=== PATIENT | female | born 1990 | race Caucasian/White ===

== ENCOUNTER 2018-08-10 11:41 | Outpatient (CLI) | payer OTHER ==
[~2018-08-10] VITALS: Ht 157.5 cm; Wt 74.8 kg
[2018-08-10 11:58] VITALS: BP 136/82; PULSE 108; Ht 157.5 cm; Wt 74.8 kg
--- NOTE | 2018-08-10 14:45 | TRIAGE ---
OB Triage Datetime Report Generated by CPN: 08/10/2018 14:45 Datetime: 08/10/2018 12:24 Labor Evaluation Frequency: x1 Monitor Mode: External Duration (sec)2399: 60 Quality: Mild Pattern: Normal: <= 5 Contractions in 10 Minutes Resting Tone [place]: Relaxed Heart Rate FHR Baseline Rate: 145 Monitor Mode: External US Variability: Moderate 6-25 bpm Accelerations: 15X15 Decelerations: None Category: Category I Comments: reactive nst Pain Assessment Pain Presence: None/Denies Pain Type: N/A Datetime: 08/10/2018 12:04 Assessment Type: Triage Maternal Assessment Level of Consciousness: Fully Conscious DTR's/Clonus: DTRs 2+; No Clonus Headache: Denies Blurred Vision: No Respiratory Effort: Unlabored; Regular Rhythm; Equal Expansion Breath Sounds, Left: Clear and Equal Breath Sounds, Right: Clear and Equal Nausea/Vomiting: Denies RUQ Epigastric Pain: Denies Lower Extremities Edema: None Degree: None Upper Extremities Edema: None Facial Edema: None Fall Risk Assessment History of Falling: (0) No Secondary Diagnosis: (0) No Ambulatory Aid: (0) Bedrest/Nurse Assist IV Therapy: (0) No Gait: (0) Normal/Bedrest/Immobile Mental Status: (0) Oriented to Own Ability Fall Score: 0 Fall Risk Score Definition: No Risk: No action required Datetime: 08/02/2018 11:45 Vaginal Exam Membrane Status: Intact Datetime: 08/02/2018 10:52 Time of Arrival: 08/10/2018 11:28 EGA: 36.0 Arrived By: Ambulatory Arrived From: Home Chief Complaint: pt. to ob triage with prescription for 24hr urine for total protein, creatinine cl earance, pih labs, nst, bpp, pt. c/o sometime feel headache, see dark spots. deny epigastric pain Movement: Present Contractions: Denies/Absent Rupture of Membranes: Denies Vaginal Discharge: Denies Recent Sexual Intercouse: Denies Abdominal Trauma: Not Applicable Patient Complaints: Headache; Visual Disturbance; Other Additional Patient Complaints: iugr Time Provider Notified: 08/10/2018 14:01 Provider Notified: Initial Plan: nst, bpp, pih labs, 24hr urine for total protein, creatinine clearance
--- NOTE | 2018-08-10 19:43 | PN ---
Triage Information Date/Time 08/10/2018 Reason for visit: Rule out PIH, headache and blurred vision Weeks of Gestation 36 weeks /Para 2 para 1 Diabetes: none Hypertention: none Additional information 27-year-old with IUP at 36 weeks presented with for rule out PIH due to headache and scotoma. Her blood pressures during office visit was in the range of 130s over 80s. Patient denies any leaking of fluid, vaginal bleeding or decreased movement. Denies any prior history of PIH and prior . Antepartum course complicated by IUGR currently being followed by NST BPP Objective Vital Signs Date Temp Pulse Resp B/P (MAP) Pulse Ox O2 O2 Flow FiO2 Time Delivery Rate 08/10/18 98.1 108 136/82 11:58 (100) Heart Rate: 130's Contractions: None Exam Appearance: Alert and oriented x4 does not appear to be in any acute distress Abdomen: Soft, gravid, fundal height consider gestational age NST: Category 1 LAZARUS: 10 BPP: 12/14 Paraspinals normal Results/Medications Result Diagram: 08/10/18 1209 08/10/18 1209 Results 24 hrs Laboratory Tests Test 08/10/18 11:55 08/10/18 12:09 Urine Color YELLOW Urine Clarity CLEAR Urine pH 6.0 Urine Specific [place] 1.020 Urine Ketones NEGATIVE Urine Nitrite NEGATIVE Urine Bilirubin NEGATIVE Urine Urobilinogen NEGATIVE Urine Leukocyte Esterase NEGATIVE Urine Hemoglobin NEGATIVE Urine Random Creatinine 111.07 Urine Collection Duration 24 Urine Total Volume 24 Hours 1250 Urine Creatinine Timed 24 Creatinine Clearance 181.9 H Urine Total Volume (Protein) 1250 Urine Total Protein 24 Hour 75.0 Urine Glucose NEGATIVE Urine Total Protein NEGATIVE White Blood Count 9.0 Red Blood Count 4.10 L Hemoglobin 12.6 Hematocrit 37.4 Mean Corpuscular Volume 91.2 Mean Corpuscular Hemoglobin 30.7 Mean Corpuscular Hemoglobin Concent 33.7 Red Cell Distribution Width 14.1 Platelet Count 189 Mean Platelet Volume 10.9 H Immature Granulocytes % 1.300 H Neutrophils % 66.3 Lymphocytes % 18.9 Monocytes % 10.0 Eosinophils % 2.8 Basophils % 0.7 Nucleated Red Blood Cells % 0.0 Immature Granulocytes # 0.120 H Neutrophils # 6.0 Lymphocytes # 1.7 Monocytes # 0.9 Eosinophils # 0.3 Basophils # 0.1 Nucleated Red Blood Cells # 0.0 Prothrombin Time 13.2 Prothrombin Time Ratio 1.0 INR International Normalized Ratio 0.99 Activated Partial Thromboplast Time 22.9 L Fibrinogen 589.0 H Sodium Level 137 Potassium Level 4.2 Chloride Level 107 Carbon Dioxide Level 22 Anion Gap 8 Blood Urea Nitrogen 12 Creatinine 0.53 Est Glomerular Filtrat Rate mL/min > 60 Glucose Level 76 Uric Acid 5.1 Calcium Level 9.1 Total Bilirubin 0.4 Direct Bilirubin 0.00 Indirect Bilirubin 0.4 Aspartate Amino Transf (AST/SGOT) 18 Alanine Aminotransferase (ALT/SGPT) 10 L Alkaline Phosphatase 95 Total Protein 7.4 Albumin 3.7 Globulin 3.70 H Albumin/Globulin Ratio 1.00 Imaging Results PROCEDURE: US Obstetrical , limited CLINICAL INDICATION: Biophysical profile for well being, labor. TECHNIQUE: Multiple real-time images were acquired of the patient's maternal abdomen utilizing a curved array transducer. COMPARISON: 08/02/2018 FINDINGS: There is a single live intrauterine fetus in a cephalic presentation. The placenta is implanted posteriorly and is grade 1. The amniotic fluid index measures 12.0 cm. The heart rate is 146 beats per minute. Biophysical profile: Tone: 2 breathin Gross body movement: 2 Amniotic fluid: 2 Biophysical profile score: 8/8 IMPRESSION: 1. Single live intrauterine fetus, cephalic presentation, unchanged. 2. Posterior placenta, grade 1. 3. Amniotic fluid index 12.0 cm. 4. Biophysical profile score: 8/8. Disposition: Discharge Assessment/Plan IUP at 36 weeks IUGR Headache and occasional blurred vision. No evidence of PIH. 24-hour urine protein: 75 mg testing reassuring labor precaution and labor precaution kick count and follow-up with primary OB office within 2 days after discharge from the hospital discussed with patient Importance of follow-up with testing twice a week discussed with the patient All questions were answered to patient's best satisfaction REBA TORRES MD Aug 10, 2018 19:43
== END 2018-08-10 14:40 | disposition home or self-care (01) ==
LOC: OBT 11:41 → L-D 11:41 → OBT 14:40
PROVIDERS: ATTEND Obstetrics & Gynecology
DX: O36.5930 Maternal care for other known or suspected poor fetal growth, third trimester, not applicable or unspecified (principal); O36.8330 Maternal care for abnormalities of the fetal heart rate or rhythm, third trimester, not applicable or unspecified; O26.893 Other specified pregnancy related conditions, third trimester; R51 Headache; H53.8 Other visual disturbances; Z3A.36 36 weeks gestation of pregnancy
CPT/HCPCS: 76818; 80053; 81003; 82575; 84156; 84560; 85025; 85384; 85610; 85730; Z7500; G0463

== ENCOUNTER 2018-08-14 11:29 | Outpatient (CLI) | payer OTHER ==
[~2018-08-14] VITALS: Ht 157.5 cm; Wt 75.3 kg
[2018-08-14 11:45] VITALS: Ht 157.5 cm; Wt 75.3 kg
[2018-08-14] MEDS ORDERED: PREN-93 PO (11:45)
[2018-08-14 11:46] VITALS: BP 123/73; PULSE 107; RESP 18
--- NOTE | 2018-08-14 13:02 | PN ---
Triage Information Date/Time Reason for visit: IUGR for NST BPP Weeks of Gestation 36+ /Para n/a Diabetes: none Hypertention: none Objective Vital Signs Date Temp Pulse Resp B/P (MAP) Pulse Ox O2 O2 Flow FiO2 Time Delivery Rate 08/14/18 98.1 107 18 123/73 Room Air 11:46 (90) Heart Rate: 140's Contractions: None Disposition: Discharge Assessment/Plan BPP 02/15 Questions answered Follow up with provider LUDIN NI M.D. Aug 14, 2018 13:02
== END 2018-08-14 13:05 | disposition home or self-care (01) ==
LOC: OBT 11:29 → L-D 11:29 → OBT 13:05
PROVIDERS: ATTEND Obstetrics & Gynecology
DX: O36.5930 Maternal care for other known or suspected poor fetal growth, third trimester, not applicable or unspecified (principal); O36.8330 Maternal care for abnormalities of the fetal heart rate or rhythm, third trimester, not applicable or unspecified; Z3A.36 36 weeks gestation of pregnancy
CPT/HCPCS: 76818; Z7500; G0463

== ENCOUNTER 2018-08-24 08:00 | Inpatient (IN) | payer OTHER ==
[~2018-08-24] VITALS: Ht 157.5 cm; Wt 75.4 kg
[~2018-08-24 08:00] MED LIST: PREN-93 PO
[2018-08-24 09:47] VITALS: BP 119/74; PULSE 96; RESP 18
[2018-08-24 10:00] VITALS: Ht 157.5 cm; Wt 75.4 kg
[2018-08-24] MEDS: LACTATED RINGER'S 1,000 ML IV SCH ×2 (11:18→17:25)
[2018-08-24] MEDS ORDERED: LIDOCAINE 1% (MPF) 30 ML INJ INJ PRN (11:30)
[2018-08-24] MEDS ORDERED: MISOPROSTOL 200 MCG TAB PR PRN (11:30)
[2018-08-24] MEDS ORDERED: OXYTOCIN 30 UNITS/LR 500 ML IV SCH ×3 (11:30)
[2018-08-24] MEDS ORDERED: CARBOPROST 250 MCG INJ IM PRN (11:30)
[2018-08-24] MEDS ORDERED: OXYTOCIN 30 UNITS/LR 500 ML IV PRN (11:30)
[2018-08-24] MEDS ORDERED: METHYLERGONOVINE 0.2 MG INJ IM PRN (11:30)
[2018-08-24] MEDS ORDERED: MISOPROSTOL 50 MCG CAPSULE VAG ONE (11:30)
[2018-08-24] MEDS ORDERED: MISOPROSTOL 50 MCG CAPSULE PO SCH (13:00)
[2018-08-24] MEDS ORDERED: MISOPROSTOL 50 MCG CAPSULE VAG SCH ×2 (16:00→17:00)
--- NOTE | 2018-08-24 20:02 | PREAC ---
Date/Time of Note Date/Time of Note DATE: 08/24/18 TIME: 20:01 Anesthesia Eval and Record Evaluation Time Pre-Procedure Interview DATE: 08/24/18 TIME: 20:01 Age 27 Sex female NPO: 8 hrs Preoperative diagnosis Planned procedure labor epidural Past Medical History Past Medical History: Includes GI: Obesity Surgery & Anesthesia Issues No known issue Meds Anticoagulation: No Beta Nelson within 24 hr: No Reason Beta Nelson not given: Pt. not on B-Nelson Reported Medications Vit No.124/Iron/FA ( Vitamin Tablet) 1 Each Tablet, 1 EACH PO DAILY, TAB 08/14/18 Current Medications Lactated Ringer's 1,000 ml @ 125 mls/hr Q8H IV Last administered on 08/24/18at 17:25; Admin Dose 125 MLS/HR; Start 08/24/18 at 11:06 Lidocaine (Xylocaine 1% (Mpf)) 30 ml ONCE PRN INJ .EPISIOTOMY; Start 08/24/18 at 11:30 Oxytocin/Lactated Ringer's 500 ml @ 500 mls/hr ONCE POST IV ; Start 08/24/18 at 11:30 Oxytocin/Lactated Ringer's 500 ml @ 125 mls/hr POST IV ; Start 08/24/18 at 11:30 Oxytocin/Lactated Ringer's 500 ml @ 0 mls/hr ONCE PRN IV .VAGINAL BLEEDING; Start 08/24/18 at 11:30 Methylergonovine Maleate (Methergine) 0.2 mg ONCE PRN IM .VAGINAL BLEEDING; Start 08/24/18 at 11:30 Carboprost Tromethamine (Hemabate) 250 mcg ONCE PRN IM .VAGINAL BLEEDING; Start 08/24/18 at 11:30 Misoprostol (Cytotec) 1,000 mcg ONCE PRN AK .VAGINAL BLEEDING; Start 08/24/18 at 11:30 Oxytocin/Lactated Ringer's 500 ml @ 0 mls/hr FOR INDUCTION IV ; Start 08/24/18 at 11:30 Misoprostol (Cytotec 50 Mcg Capsule) 50 mcg Q4 VAG Last administered on 08/24/18at 16:08; Admin Dose 50 MCG; Start 08/24/18 at 16:00 Meds reviewed: Yes Allergies Coded Allergies: penicillin G (Verified Allergy, Intermediate, rash, 08/10/18) Allergies Reviewed: Yes Labs/Studies Labs Reviewed: Reviewed by anesthesiologist Result Diagram: 08/24/18 1005 Laboratory Tests 08/24/18 10:05 Blood Bank Test 08/24/18 10:05 Antibody Screen NEGATIVE Blood Type O POSITIVE Rh Immune Globulin Candidate NO test: Positive Pre-procedure Exam Last vitals Vital Signs Date Temp Pulse Resp B/P (MAP) Pulse Ox O2 O2 Flow FiO2 Time Delivery Rate 08/24/18 97.6 96 18 119/74 Room Air 09:47 (89) Airway: Adequate mouth opening, Adequate thyromental dist Mallampati: Mallampati II Teeth: Normal Lung: Normal Heart: Normal ASA Physical Status ASA physical status: 2 Emergency: None Planned Anesthetic Neuraxial: Epidural Pre-operative Attestations Prior to commencing anesthesia and surgery, the patient was re-evaluated, there was verification of: *The patient's identity *The results of appropriate recent lab work and preoperative vital signs *The above evaluation not changing prior to induction *Anesthetic plan, risk benefits, alternative and complications discussed with patient/family; questions answered; patient/family understands, accepts and w ishes to proceed. TAVON FLETCHER Aug 24, 2018 20:02
[2018-08-24] MEDS ORDERED: KETOROLAC 30 MG INJ IV PRN (20:30)
[2018-08-24] MEDS ORDERED: DIPHENHYDRAMINE 50 MG INJ IV PRN (20:30)
[2018-08-24] MEDS ORDERED: ONDANSETRON 4 MG INJ IV PRN (20:30)
[2018-08-24] MEDS ORDERED: HYDROmorphONE 0.5 MG/0.5 ML SYG IV PRN ×2 (20:30)
[2018-08-24] MEDS ORDERED: NALOXONE (0.4 MG/ML) INJ IV PRN (20:30)
[2018-08-24] MEDS ORDERED: FENTAnyl 2MCG/ML-ROPIV 0.2% 100 ML BAG EPI SCH (20:30)
--- NOTE | 2018-08-24 21:31 | PAC ---
Date/Time of Note Date/Time of Note DATE: 08/24/18 TIME: 21:31 Post-Anesthesia Notes Post-Anesthesia Note Last documented vital signs Vital Signs Date Temp Pulse Resp B/P (MAP) Pulse Ox O2 O2 Flow FiO2 Time Delivery Rate 08/24/18 97.6 96 18 119/74 Room Air 09:47 (89) Activity: WNL Respiratory function: WNL Cardiovascular function: WNL Mental status: Baseline Pain reasonably controlled: Yes Hydration appropriate: Yes Nausea/Vomiting absent: Yes TAVON FLETCHER Aug 24, 2018 21:31
[2018-08-25] MEDS: LACTATED RINGER'S 1,000 ML IV SCH (04:38)
[2018-08-25 11:22] VITALS: BP 116/67; PULSE 78; RESP 18
[2018-08-25 11:37] VITALS: BP 112/56; PULSE 73; RESP 18
[2018-08-25 12:30] VITALS: BP 120/74; PULSE 68; RESP 18
[2018-08-25] MEDS ORDERED: OXYTOCIN 30 UNITS/LR 500 ML IV SCH (12:54)
[2018-08-25] MEDS ORDERED: CARBOPROST 250 MCG INJ IM PRN (13:00)
[2018-08-25] MEDS ORDERED: DIPHENHYDRAMINE 25 MG CAP PO PRN (13:00)
[2018-08-25] MEDS ORDERED: ACETAMINOPHEN 325 MG TAB PO PRN (13:00)
[2018-08-25] MEDS ORDERED: BENZOCAINE 20% 56 ML SPRAY TOP PRN (13:00)
[2018-08-25] MEDS ORDERED: ONDANSETRON 4 MG INJ IV PRN (13:00)
[2018-08-25] MEDS ORDERED: METHYLERGONOVINE 0.2 MG INJ IM PRN (13:00)
[2018-08-25] MEDS ORDERED: HYDROCODONE/APAP (5/325) TAB PO PRN ×2 (13:00)
[2018-08-25] MEDS ORDERED: LANOLIN HPA 1 PKT TOP PRN (13:00)
[2018-08-25] MEDS ORDERED: MISOPROSTOL 200 MCG TAB PR PRN (13:00)
[2018-08-25] MEDS ORDERED: OXYTOCIN 30 UNITS/LR 500 ML IV PRN (13:00)
--- NOTE | 2018-08-25 14:38 | HP ---
Date/Time of Note Date/Time of Note DATE: 08/25/18 TIME: 14:33 OB - History Hx of Present Free Text/Dictation 27 years old female 2 para 1 with an EDC of September 07, 2018 admitted on 08/24/2018 for induction of labor due to IUGR Last Menstrual Period: Dec 15, 2017 Estimated Due Date: September 07, 2018 : 2 Para: 1 Care: Good Care Ultrasounds: Normal mid trimester US Obstetrical Complications: Growth Restriction Past Family/Social History * Past Medical, Surgical, Family and Obstetric Histories reviewed from chart. Blood Type: O+ Rubella: immune RPR/VDRL: Negative GBS Status: Negative HBsAG: Negative OB Admission Exam Vital Signs Vital Signs Vital Signs Date Temp Pulse Resp B/P (MAP) Pulse Ox O2 O2 Flow FiO2 Time Delivery Rate 08/25/18 97.8 68 18 120/74 Room Air 12:30 (89) Physical Exam HEENT: WNL Heart: Rhythm Normal Lungs: Clear, Equal Abdomen: WNL Extremities: Normal Reflexes: Normal Cervical Dilatation: Fingertip Effacement: 50% Station: Ballotable Membranes: Intact Intensity: Mild Last 72 hours Lab Results CBC & BMP 08/24/18 10:05 OB Assessment/Plan Other Assessment: Induction of labor due to intrauterine growth retardation at 38 weeks of Induction Method: per Misoprostol Protocol PIA SWANN MD Aug 25, 2018 14:38
--- NOTE | 2018-08-25 14:42 | LDN ---
Date/Time of Note Date/Time of Note DATE: 08/25/18 TIME: 14:39 Delivery Summary 38.1 weeks Induction of labor Spontaneous vaginal delivery baby girl 9 cord around the neck once Vaginal abrasion and a small laceration sutured under epidural anesthesia. Baby and mother are stable doing well Weeks of Gestation 38.1 Placenta Delivered: Spontaneously Meconium: none Episiotomy: No Laceration repair: Vaginal repair under epidural Anesthesia type: Epidural Estimated blood loss: 200 Sponge & Needle done & correct: Yes Any foreign bodies felt in the: No Delivery Information Sex Infant Sex: female Apgars 1 Minute: 9 Umbilical Cord Umbilical cord with: 3 Vessels Cord presentations: nuchal cord Cord Blood was obtained: Yes Mother & Baby Disposition Disposition Mom & Baby to Maternity; Good: Yes PIA SWANN MD Aug 25, 2018 14:42
[2018-08-25 16:00] VITALS: BP 106/62; PULSE 70; RESP 18
[2018-08-25] MEDS: WITCH HAZEL/GLYCERIN PAD PR PRN (17:22)
[2018-08-25] MEDS: IBUPROFEN 800 MG TAB PO SCH ×2 (17:23→23:59)
[2018-08-25 20:20] VITALS: BP 117/72; PULSE 71; RESP 21
[2018-08-25] MEDS: SENNA/DOCUSATE NA (8.6MG/50MG) TAB PO SCH (21:13)
[2018-08-26 03:40] VITALS: BP 114/70; PULSE 64; RESP 19
[2018-08-26] MEDS: IBUPROFEN 800 MG TAB PO SCH ×4 (05:34→23:37)
[2018-08-26 07:30] VITALS: BP 125/80; PULSE 66; RESP 18
[2018-08-26] MEDS: SENNA/DOCUSATE NA (8.6MG/50MG) TAB PO SCH ×2 (10:11→21:00)
[2018-08-26 16:14] VITALS: BP 112/71; PULSE 77; RESP 18
[2018-08-26 21:00] VITALS: BP 126/73; PULSE 75; RESP 18
[2018-08-27 03:15] VITALS: BP 112/64; PULSE 70; RESP 18
[2018-08-27] MEDS: IBUPROFEN 800 MG TAB PO SCH ×2 (06:20→12:06)
[2018-08-27 08:00] VITALS: BP 121/77; RESP 18
[2018-08-27] MEDS: SENNA/DOCUSATE NA (8.6MG/50MG) TAB PO SCH (09:00)
[2018-08-27] MEDS ORDERED: MEASLES,MUMPS,RUBELLA VACCINE INJ SC* ONE (09:00)
[2018-08-27] MEDS ORDERED: DIPHTH/TET/ACEL PERTUSS (ADULT) 0.5 ML VIAL IM* ONE (09:00)
[2018-08-27] MEDS ORDERED: VARICELLA VACCINE LIVE/PF 1,350 UNIT/0.5 ML ML SC* ONE (09:00)
[2018-08-27] MEDS: WITCH HAZEL/GLYCERIN PAD PR PRN (11:51)
--- NOTE | 2018-08-27 12:33 | QN ---
Documentation Comment PPD#2 is stable afebrile tolerates diet No VB +BM +voids VS stable Gen NAD Abd soft NT ND Genitalia No blood at perineum --->Discharge plan --->Ambulation LUDIN NI M.D. Aug 27, 2018 12:33
--- NOTE | 2018-08-28 16:19 | DELSUM ---
Delivery Summary A-C Datetime Report Generated by CPN: 08/28/2018 16:19 DELIVERY PERSONNEL Business Solutions Consultant: Dottie Stewart MATERNAL INFORMATION Delivery Anesthesia: Epidural Medications in Delivery: LR WITH 30 UNITS PITOCIN Delivery QBL (ml): 200 Placenta Cultured: No Maternal Complications: Other Other Maternal Complications: IUGR LABOR SUMMARY EDC: 09/07/2018 00:00 No. Babies in Womb: 1 Attempted: No Labor Anesthesia: Epidural LABOR INFORMATION Reason for Induction: IUGR Onset of Labor: 08/25/2018 06:49 Complete Dilatation: 08/25/2018 09:40 Cervical Ripening Agents: Cytotec @ Oxytocin: Augmentation Group B Beta Strep: Negative Antibiotics # of Doses: 0 Steroids Given: None Reason Steroids Not Administered: Not Applicable MEMBRANES Membranes Rupture Method: Artificial Rupture of Membranes: 08/25/2018 09:07 Length of Rupture (hr): 0.73 Amniotic Fluid Color: Clear Amniotic Fluid Amount: Moderate Amniotic Fluid Odor: None STAGES OF LABOR Stage 1 hr: 2 Stage 1 min: 51 Stage 2 hr: 0 Stage 2 min: 11 Stage 3 hr: 0 Stage 3 min: 1 Total Time in Labor hr: 3 Total Time in Labor min: 3 VAGINAL DELIVERY Episiotomy: None Laceration Extension: N/A Laceration Type: Vaginal Other Laceration: VAGINAL ABRASION Laceration Repair: Yes Initial Vag Sponge Count: 10 Final Vag Sponge Count: 10 Initial Vag Sharps Count: 2 Final Vag Sharps Count: 2 Sponge Count Correct: Yes Sharps Count Correct: Yes BABY A INFORMATION Delivery Date/Time: 08/25/2018 09:51 Method of Delivery: Vaginal Born in Route : No : N/A Forceps: N/A Vacuum Extraction: N/A Shoulder Dystocia : N/A SHOULDER DYSTOCIA BABY A Delivery Date/Time: 08/25/2018 09:51 PRESENTATION/POSITION BABY A Presentation: Cephalic Cephalic Presentation: Vertex Vertex Position: Left Occipital Anterior Breech Presentation: N/A PLACENTA INFORMATION BABY A Placenta Delivery Time : 08/25/2018 09:52 Placenta Method of Delivery: Spontaneous Placenta Status: Delivered SCORES BABY A Heart Rate 1 min: >100 bpm Resp Effort 1 min: Good Cry Reflex Irritability 1 min: Cough/Sneeze/Pulls Away Muscle Tone 1 min: Active Motion Color 1 min: Body [place], Extremit Blue Resuscitation Effort 1 min: Tactile Stimulation SCORE 1 MIN: 9 Heart Rate 5 min: >100 bpm Resp Effort 5 min: Good Cry Reflex Irritability 5 min: Cough/Sneeze/Pulls Away Muscle Tone 5 min: Active Motion Color 5 min: Body [place], Extremit Blue Resuscitation Effort 5 min: Tactile Stimulation SCORE 5 MIN: 9 INFORMATION BABY A Gestational Age at Delivery: 38.1 Gestational Status: Early Term- 37- 38.6 Weeks Outcome : Liveborn Infant Condition : Stable Infant Sex: Female IDENTIFICATION/MEDS BABY A ID Band Number: [id number] ID Band Location: Right Leg; Left Arm Sensor Applied: Yes Sensor Number: [id number] Sensor Location : Cord Clamp Vitamin K Given : Not Given Erythromycin Given: Not Given WEIGHT/LENGTH BABY A Birthweight (gm): 2595 Infant Weight (lb): 5 Weight (oz): 12 Length (in): 18.50 Length (cm): 46.99 CORD INFORMATION BABY A No. Cord Vessels: 3 Nuchal Cord : Around Neck x1, Loose Cord Blood Taken: Yes Suction: Mouth; Nose ASSESSMENT BABY A Complications: None Physical Findings at Delivery: Within Normal Limits Respirations: Appears Normal Party Plan Sales Unit Advisor/ALS Called : No Transferred To: Remains with Mother
== END 2018-08-27 16:19 | disposition home or self-care (01) | DRG 806 ==
LOC: L-D 08:56 → PP1 08-25 12:22
PROVIDERS: ADMIT Obstetrics & Gynecology; ATTEND Obstetrics & Gynecology
PROC: 10E0XZZ Delivery of Products of Conception, External Approach (ICD-10-PCS; principal; 2018-08-25)
PROC: 0UQGXZZ Repair Vagina, External Approach (ICD-10-PCS; 2018-08-25)
PROC: 3E0P7VZ Introduction of Hormone into Female Reproductive, Via Natural or Artificial Opening (ICD-10-PCS; 2018-08-25)
DX: O36.5930 Maternal care for other known or suspected poor fetal growth, third trimester, not applicable or unspecified (principal); O71.4 Obstetric high vaginal laceration alone; Z37.0 Single live birth; O69.81X0 Labor and delivery complicated by cord around neck, without compression, not applicable or unspecified; O99.214 Obesity complicating childbirth; E66.9 Obesity, unspecified; Z3A.38 38 weeks gestation of pregnancy
CPT/HCPCS: 62322; 85025; 85610; 85730; 86592; 86850; 86900; 86901; 90716; J2405; J2590; J3010; J7120